=== PATIENT | male | born 1980 | race African-American/Black ===

== ENCOUNTER 2016-12-22 19:38 | Emergency (ER) | payer SELFPAY ==
[~2016-12-22] VITALS: Ht 172.7 cm; Wt 70.3 kg
[2016-12-22 19:51] VITALS: BP 130/77
[2016-12-22 20:50] VITALS: BP 130/77
[2016-12-22] MEDS ORDERED: ACETAMINOPHEN-1 EAC1 ORAL (20:58)
[2016-12-22] MEDS ORDERED: IBUPROFEN600 MG ORAL (20:58)
--- NOTE | 2016-12-23 11:55 | Diagnostic Imaging Report ---
Indication: PAIN on the left side Technique: Multiple views of the left ribs Comparison: None Findings: There is a fracture of the anterior left 10th rib. There is a fracture of the posterior lateral left 11th rib. No gross pneumothorax is evident. Impression: Positive for left 10th and 11th rib fractures Findings discussed by phone with Dr. Lopes in the emergency room at the time of interpretation
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
== END 2016-12-22 21:03 | disposition home or self-care (01) ==
LOC: EMR 20:14
DX: S22.42XA Multiple fractures of ribs, left side, initial encounter for closed fracture (principal); W50.0XXA Accidental hit or strike by another person, initial encounter; Y93.9 Activity, unspecified; Y92.9 Unspecified place or not applicable
CPT/HCPCS: 99283